=== PATIENT | male | born 1990 | race Caucasian/White ===

== ENCOUNTER 2023-02-11 08:15 | Outpatient (CLI) | payer OTHER, SELFPAY ==
[2023-02-11 18:31] LABS: Hematocrit 42.3 % (42.0-52.0); Hemoglobin 13.6 g/dL (14.0-18.0); Mean Corpuscular HGB Conc 32.2 g/dl (32-36); Mean Corpuscular Hemoglobin 31.5 pg (26-34); Mean Corpuscular Volume 97.9 fl (80-100); Mean Platelet Volume 12.1 fl (7.4-10.4); Platelet Count Result 253 k/mm3 (150-375); Red Blood Count 4.32 M/mm3 (4.6-6.20); Red Cell Distribution Width 12.6 % (11.5-14.5)
[2023-02-11 18:42] LABS: Alanine Aminotransferase 85 U/L (6-50); Alkaline Phosphatase 95 U/L (38-126); Anion Gap 9 mmol/L (8-16); Aspartate Amino Transferase 143 U/L (17-59); Bilirubin,Total 0.4 mg/dL (0.2-1.3); Blood Urea Nitrogen 14 mg/dL (9-20); Calcium 8.7 mg/dL (8.4-10.2); Carbon Dioxide 26 mmol/L (22-30); Chloride 105 mmol/L (98-107); Cholesterol 161 mg/dL (0-200); Estimated Glomerular Filt Rate > 60; Glucose 91 mg/dL (65-110); HDL Direct 25 mg/dL; Potassium 3.7 mmol/L (3.4-5.0); Sodium 140 mmol/L (137-145); Triglycerides 219 mg/dL (<150)
[2023-02-11 18:54] LABS: LDL Cholesterol Direct 93 mg/dL
== END 2023-02-11 08:16 | disposition home or self-care (01) ==
PROVIDERS: PCP Family Medicine; Visit Provider Family Medicine
DX: Z00.00 Encounter for general adult medical examination without abnormal findings (principal); E66.9 Obesity, unspecified
CPT/HCPCS: 36415; 80053; 80061; 83036; 84443; 85027

== ENCOUNTER 2023-04-11 11:13 | Outpatient (CLI) | payer OTHER, SELFPAY ==
[2023-04-11 18:55] LABS: Hematocrit 44.8 % (42.0-52.0); Hemoglobin 14.6 g/dL (14.0-18.0); Mean Corpuscular HGB Conc 32.6 g/dl (32-36); Mean Corpuscular Volume 95.1 fl (80-100); Mean Platelet Volume 12.2 fl (7.4-10.4); Platelet Count Result 300 k/mm3 (150-375); Red Blood Count 4.71 M/mm3 (4.6-6.20); Red Cell Distribution Width 12.2 % (11.5-14.5); White Blood Count 8.3 K/mm3 (4.5-10.0)
[2023-04-11 20:26] LABS: Alanine Aminotransferase 78 U/L (6-50); Albumin Level 4.2 g/dL (3.5-5.1); Alkaline Phosphatase 91 U/L (38-126); Anion Gap 9 mmol/L (8-16); Aspartate Amino Transferase 124 U/L (17-59); Bilirubin,Total 0.5 mg/dL (0.2-1.3); Blood Urea Nitrogen 14 mg/dL (9-20); Calcium 8.9 mg/dL (8.4-10.2); Carbon Dioxide 25 mmol/L (22-30); Chloride 106 mmol/L (98-107); Estimated Glomerular Filt Rate > 60; Glucose 87 mg/dL (65-110); Potassium 4.1 mmol/L (3.4-5.0); Sodium 140 mmol/L (137-145)
== END 2023-04-11 11:14 | disposition home or self-care (01) ==
LOC: ANHBWCLAB 11:14
PROVIDERS: PCP Nurse Practitioner Adult Health; Visit Provider Nurse Practitioner Adult Health
DX: R03.0 Elevated blood-pressure reading, without diagnosis of hypertension (principal); D64.9 Anemia, unspecified; R74.8 Abnormal levels of other serum enzymes
CPT/HCPCS: 36415; 80048; 80076; 85027

== ENCOUNTER 2024-01-16 11:27 | Outpatient (CLI) | payer OTHER, SELFPAY ==
[2024-01-16 19:06] LABS: Alanine Aminotransferase 49 U/L (6-50); Albumin Level 4.3 g/dL (3.5-5.1); Alkaline Phosphatase 95 U/L (38-126); Anion Gap 8 mmol/L (4-12); Aspartate Amino Transferase 63 U/L (17-59); Bilirubin,Total 0.4 mg/dL (0.2-1.3); Blood Urea Nitrogen 16 mg/dL (9-20); Calcium 9.2 mg/dL (8.4-10.2); Carbon Dioxide 26 mmol/L (22-30); Chloride 103 mmol/L (98-107); Cholesterol 154 mg/dL (0-200); Estimated Glomerular Filt Rate > 60; Glucose 98 mg/dL (65-110); HDL Direct 34 mg/dL; Potassium 4.4 mmol/L (3.4-5.0); Sodium 137 mmol/L (137-145); Triglycerides 138 mg/dL (<150)
[2024-01-16 19:13] LABS: Hematocrit 44.7 % (42.0-52.0); Hemoglobin 14.7 g/dL (14.0-18.0); Mean Corpuscular HGB Conc 32.9 g/dl (32-36); Mean Corpuscular Hemoglobin 31.7 pg (26-34); Mean Corpuscular Volume 96.3 fl (80-100); Mean Platelet Volume 12.6 fl (7.4-10.4); Platelet Count Result 277 k/mm3 (150-375); Red Blood Count 4.64 M/mm3 (4.6-6.20); Red Cell Distribution Width 12.1 % (11.5-14.5); White Blood Count 8.4 K/mm3 (4.5-10.0)
[2024-01-16 19:17] LABS: LDL Cholesterol Direct 83 mg/dL
== END 2024-01-16 11:28 | disposition home or self-care (01) ==
LOC: ANHBWCLAB 11:28
PROVIDERS: PCP Nurse Practitioner Adult Health; Visit Provider Nurse Practitioner Adult Health
DX: R74.8 Abnormal levels of other serum enzymes (principal); E78.1 Pure hyperglyceridemia; Z13.9 Encounter for screening, unspecified
CPT/HCPCS: 36415; 80053; 80061; 85027

== ENCOUNTER 2024-07-16 11:23 | Outpatient (CLI) | payer OTHER, SELFPAY ==
[2024-07-16 20:22] LABS: Alanine Aminotransferase 42 U/L (6-50); Albumin Level 4.1 g/dL (3.5-5.1); Alkaline Phosphatase 98 U/L (38-126); Anion Gap 9 mmol/L (4-12); Aspartate Amino Transferase 59 U/L (17-59); Bilirubin,Total 0.6 mg/dL (0.2-1.3); Blood Urea Nitrogen 15 mg/dL (9-20); Calcium 8.5 mg/dL (8.4-10.2); Carbon Dioxide 22 mmol/L (22-30); Chloride 106 mmol/L (98-107); Cholesterol 149 mg/dL (0-200); Estimated Glomerular Filt Rate > 60; Glucose 82 mg/dL (65-110); HDL Direct 32 mg/dL; Potassium 3.5 mmol/L (3.4-5.0); Sodium 137 mmol/L (137-145); Triglycerides 127 mg/dL (<150)
[2024-07-16 20:34] LABS: LDL Cholesterol Direct 86 mg/dL
[2024-07-16 21:23] LABS: Hemoglobin A1C 5.2 % (<5.7)
== END 2024-07-16 11:24 | disposition home or self-care (01) ==
LOC: ANHBWCLAB 11:25
PROVIDERS: PCP Nurse Practitioner Adult Health; Visit Provider Nurse Practitioner Adult Health
DX: E66.9 Obesity, unspecified (principal); Z13.9 Encounter for screening, unspecified
CPT/HCPCS: 36415; 80053; 80061; 83036

== ENCOUNTER 2024-10-08 15:22 | Emergency (ER) | payer OTHER, SELFPAY ==
[2024-10-08 15:26] VITALS: BP 163/95; PULSE 68; RESP 20; TEMP 36.7; O2SAT 98
--- NOTE | 2024-10-08 15:31 | ED.BACK ---
HPI - Back Pain/Injury General Chief Complaint: Back Pain/Injury Stated Complaint: Back Pain Time Seen by Provider: 10/08/24 15:32 Source: patient, RN notes reviewed and old records reviewed Mode of arrival: ambulatory Limitations: no limitations History of Present Illness HPI Narrative: 34-year-old male presents to the [facility] with complaints of low back pain worse on the right than the left for the last 5-6 days. Denies any injury. 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 Has taken ibuprofen with no relief. Denies any midline tenderness. No loss retention bowel or bladder. Walks with normal gait. No numbness or tingling in extremities Denies anything makes it better or worse. Changes positions without issue. Related Data Allergies Allergy/AdvReac Type Severity Reaction Status Date / Time No Known Allergies Allergy Unverified 09/17/24 10:56 Review of Systems Review of Systems: All systems reviewed & are unremarkable except as noted in HPI and below Constitutional: Constitutional: Reports no additional constitutional complaints Respiratory: Respiratory: Denies cough Gastrointestinal: Gastrointestinal: Reports no additional gastrointestinal complaints Genitourinary: Genitourinary: Reports no additional male genitourinary complaints Musculoskeletal: Musculoskeletal: Reports as per HPI and Reports back pain ( lumbar) Integumentary/Breasts: Skin/Breast: Reports system reviewed and no additional complaints, except as docu PMFSH Past Medical History Medical History Obesity Hypertriglyceridemia Hypertension Family History Family History Father Asthma Diabetes mellitus Hypertension Depression Cancer Grandparent Cancer Social History Social History Smoking status: Current every day smoker Tobacco type: e-cigarettes/vaping Alcohol intake: never Substance use: current Lack of Transportation: No Lack of Food: Never True Current Housing: I Have Housing Concerned About Future Housing: No Difficulty Paying Gas/Electric Bills: No Difficulty Paying for Meds: No Currently Unemployed: No Education: Trade/Vocational Certificate Difficulty w/ Childcare or Family Care: No Living arrangements: with family Occupation/Education: occupation 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 There is no relevant family history pertinent to the patient complaint. Exam Const: General: cooperative, healthy appearing, comfortable, no acute distress, well developed, alert and well nourished Nutritional Appearance: well nourished and obese morbidly obese Orientation/consciousness: patient oriented x3 Limitations: no limitations HENMT: Head: normal to inspection Eyes: General: appearance normal, both eyes and all related structures Alignment and Position: alignment normal Neck: Neck: normal visual inspection, full ROM, no lymphadenopathy and no meningeal signs Chest: Chest palpation & inspection: normal inspection of the chest Resp: Effort & Inspection: normal respiratory effort and able to speak in complete sentences Auscultation: clear to auscultation bilaterally, no crackles, no rales, no rhonchi and no wheezes Cardio: Rate: regular rate GI: GI Palp: No abdominal tenderness Back/Spine/Pelvis: Cervical Spine: normal cervical lordosis, cervical ROM normal and No Cervical spine tenderness Thoracic/Lumbar Spine: paraspinal muscle tenderness on the right in the mid lumbar and in the lower lumbar, No thoracic spinal tenderness and No lumbar spinal tenderness Pelvis: no pain with anterior-posterior compression and no pain with lateral compression Skin: General skin exam: normal color and no rashes or lesions noted Neuro: General: patient oriented x3, gait normal, moves all extremities and no meningeal signs Cognition (Neuro): normal cognition Speech: normal speech Gait exam (Neuro): Normal gait present Extrem: General: normal to inspection, full ROM, capillary refill normal and normal gait Psych: Appearance: grossly normal and well kempt Mental Status: mental status grossly normal Speech and movement: Normal speech and movement present and Clear speech present Affect: normal affect Attitude: cooperative Course Course Level of Care: Express Care Visit Vital Signs Vital signs: Vital Signs Temperature 98.0 F 10/08/24 15:26 Pulse Rate 68 10/08/24 15: Respiratory Rate 20 10/08/24 15:26 Blood Pressure 163/95 H 10/08/24 15:26 Pulse Oximetry 98 10/08/24 15:26 Oxygen Delivery Room Air 10/08/24 15:26 Temperature 98.0 F 10/08/24 15:26 Pulse Rate 68 10/08/24 15:26 Respiratory Rate 20 10/08/24 15:26 Blood Pressure 163/95 H 10/08/24 15:26 Pulse Oximetry 98 10/08/24 15:26 Oxygen Delivery Room Air 10/08/24 15:26 Reviewed MDM - Back Pain/Injury MDM Narrative Medical decision making narrative: patient sitting in exam room. Nontoxic, vitals are stable. Patient presents 5-6 day history of low back pain worse on the right than left. No injury. No acute findings noted on exam patient appropriate for outpatient treatment with muscle relaxer, anti-inflammatory. Discharge instructions reviewed with patient, as well as provided in writing per nursing staff. The instructions also include specific and strict return/GO TO THE ER as well as f/u information. All questions have been answered, and the patient deny any further questions with discharge and discharge plan. Some parts of this dictation were generated by voice recognition software and may contain typographical and/or grammatical inaccuracies. Differential Diagnosis Differential diagnosis: Likely lumbar radiculopathy, sciatica, strain of lumbar region, renal colic and pyelonephritis Critical Care Time Critical Care Time Critical Care Time: No Discharge Plan Discharge Clinical Impression: Low back pain Qualifiers: Chronicity: acute Back pain laterality: bilateral Sciatica presence: without sciatica Qualified Code(s): M54.50 - Low back pain, unspecified Patient Disposition: Home Condition: Stable Instructions: Low Back Strain (ED), Acute Low Back Pain (ED), Lower Back Exercises (ED) Additional Instructions: Today your blood pressure was 163/95. Please follow-up with your primary care provider within 2 weeks to have this rechecked. Take ibuprofen as directed to decrease inflammation and to help pain. Take Baclofen (muscle relaxer) as directed. Do not drink, drive, operate machinery, or do anything dangerous while taking this medication Exercise:Combine aerobic exercise, like walking or swimming, with specific exercises to keep the muscles in your back and abdomen strong and flexible. Proper Lifting:Be sure to lift heavy items with your legs, not your back. Do not bend over to pick something up. Keep your back straight and bend at your knees. Weight:Maintain a healthy weight. Being overweight puts added stress on your lower back. Avoid Smoking:Both the smoke and the nicotine cause your spine to age faster than normal. Proper Posture:Good posture is important for avoiding future problems. A therapist can teach you how to safely stand, sit, and lift. Use warm moist heat to help with pain. Using topical such as Biofreeze, Rajesh-Bryan or Aspercreme can also help Follow up with Primary provider in 2-3 days, This may become a chronic condition and they will be the one to help manage your pain and order additional testing. Go to the nearest ER if you develop problems with bladder/bowel function, weakness or loss of feeling in one or both of your legs. Patient Language: Omani Prescriptions: New baclofen 10 mg tablet 10 mg PO TID PRN (Reason: muscle pain, back pain) Qty: 12 0RF No Action losartan 100 mg tablet 100 mg PO DAILY Qty: 90 0RF Follow-up/Referrals: Ginna Zapata APRN [Primary Care Provider] - Stand Alone Forms: Work/School Release IP Time of Disposition: 15:41
== END 2024-10-08 15:49 | disposition home or self-care (01) ==
PROVIDERS: Emergency Provider Nurse Practitioner; PCP Nurse Practitioner Adult Health
DX: M54.50 Low back pain, unspecified (principal); F17.290 Nicotine dependence, other tobacco product, uncomplicated; I10 Essential (primary) hypertension; E78.1 Pure hyperglyceridemia; E66.9 Obesity, unspecified; Z68.43 Body mass index [BMI] 50.0-59.9, adult
CPT/HCPCS: 99213; G0463

== ENCOUNTER 2024-10-22 10:42 | Outpatient (CLI) | payer OTHER, SELFPAY ==
--- NOTE | ~2024-10-22 | XR_ITS ---
EXAM/ PROCEDURE: XR lumbar spine 2-3V - 10/22/2024 10:44 CDT HISTORY: 34 years old Male with M54.9 - Dorsalgia, unspecified COMPARISON: None available TECHNIQUE: Four view(s) FINDINGS/ IMPRESSION: There are no fractures or dislocations.Intervertebral disc spaces are within normal limits. Reviewed, dictated and finalized at location A.
== END 2024-10-22 10:43 | disposition home or self-care (01) ==
LOC: ANHBWCIMG 10:43
PROVIDERS: PCP Nurse Practitioner Adult Health; Visit Provider Nurse Practitioner Adult Health
DX: M54.9 Dorsalgia, unspecified (principal)
CPT/HCPCS: 72100

== ENCOUNTER 2024-11-07 10:53 | Emergency (ER) | payer OTHER, SELFPAY ==
[2024-11-07 10:59] VITALS: BP 153/104; PULSE 70; RESP 18; TEMP 36.6; O2SAT 100
--- NOTE | 2024-11-07 11:16 | ED.LOWEXIN ---
HPI - Extremity Injury (Lower) General Chief Complaint: Extremity Injury, Lower Stated Complaint: Left Leg Pain Time Seen by Provider: 11/07/24 11:08 Source: patient, RN notes reviewed and old records reviewed Mode of arrival: ambulatory Limitations: no limitations History of Present Illness HPI Narrative: Patient presents today with a 5 day history of left leg pain that starts at the low back extending to the buttock, posterior thigh and into the calf. Patient had low back pain 3 weeks ago but states it almost fully resolved. He initially saw his PCP for this back pain, had an x-ray, and was told it was negative. Denies injury, fall, trauma. Denies numbness or tingling. Denies loss of bowel or bladder control. Rates pain 6/10 and has been taking Tylenol and ibuprofen without improvement. Pain significantly increases when he sits. Related Data Allergies Allergy/AdvReac Type Severity Reaction Status Date / Time No Known Allergies Allergy Unverified 09/17/24 10:56 PMFSH Past Medical History Medical History Obesity Hypertriglyceridemia Hypertension Family History Family History Father Asthma Diabetes mellitus Hypertension Depression Cancer Grandparent Cancer Social History Social History Smoking status: Current every day smoker Tobacco type: e-cigarettes/vaping Alcohol intake: never Substance use: current Lack of Transportation: No Lack of Food: Never True Current Housing: I Have Housing Concerned About Future Housing: No Difficulty Paying Gas/Electric Bills: No Difficulty Paying for Meds: No Currently Unemployed: No Education: Trade/Vocational Certificate Difficulty w/ Childcare or Family Care: No Living arrangements: with family Occupation/Education: occupation 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 Please see nursing chart for further information. There is no relevant family history pertinent to the presenting complaint Exam Narrative: GENERAL: Well-appearing, over-nourished, and in mild pain distress. HEAD: Normocephalic, atraumatic. EYES: EOMI. No redness or drainage. Conjunctivae normal. ENT: Mucous membranes pink and moist. NECK: Normal AROM. MUSCULOSKELETAL: No bony tenderness of the lumbar spine. No tenderness to the SI joint, there is mild tenderness to the posterior thigh extending to the posterior calf. Pain in the left low lumbar and left buttock when sitting on exam table. Distal sensation intact bilaterally. Saddle sensation intact. Capillary refill normal. 5/5 strength in BLE EXTREMITIES: Normal range of motion. No edema. SKIN: Warm, dry, no rash. Capillary refill normal. Normal skin turgor. NEURO: No focal deficits. Alert and oriented x3. Gait steady. PSYCH: Normal affect. No signs of depression or anxiety. Course Course Level of Care: Express Care Visit Vital Signs Vital signs: Vital Signs Temperature 97.8 F 11/07/24 10:59 Pulse Rate 70 11/07/24 10:59 Respiratory Rate 18 11/07/24 10:59 Blood Pressure 153/104 H 11/07/24 10:59 Pulse Oximetry 100 11/07/24 10:59 Oxygen Delivery Room Air 11/07/24 10:59 Temperature 97.8 F 11/07/24 10:59 Pulse Rate 70 11/07/24 10:59 Respiratory Rate 18 11/07/24 10:59 Blood Pressure 153/104 H 11/07/24 10:59 Pulse Oximetry 100 11/07/24 10:59 Oxygen Delivery Room Air 11/07/24 10:59 Reviewed MDM - Extremity Injury (Lower) MDM Narrative Medical decision making narrative: 34-year-old male patient presents today with pain to the left low back extending to the left calf x5 days, that increases with sitting. Tylenol and ibuprofen have not been improving symptoms. Currently rates his pain 6/10. Denies numbness or tingling. No injury or trauma. Upon exam, back and buttock are nontender, patient has some mild tenderness to the posterior thigh and calf area. Neurovascularly intact. No saddle anesthesia. Does likely due to left-sided sciatica. Will treat with Flexeril and prednisone. Recommend no heavy lifting, twisting, jumping until symptoms improve. Also recommend following up with PCP next week if symptoms are not improving. Patient agrees with plan. Blood pressure a bit elevated today, hydrochlorothiazide added to patient's losartan at the end of October by PCP. Remainder of vital signs stable. Anticipatory guidance given. Differential Diagnosis Differential diagnosis: Likely other (Low back strain, sciatica, lumbar radiculopathy) Critical Care Time Critical Care Time Critical Care Time: No Discharge Plan Discharge Clinical Impression: Low back pain with left-sided sciatica Patient Disposition: Home Condition: Stable Instructions: Sciatica (ED), Lower Back Exercises (ED) Additional Instructions: Please take all medications as prescribed. Do not drive within 8 hours of taking the Flexeril as it can make you drowsy. You may continue Tylenol or ibuprofen if needed for pain. Use a heating pad on your back and left buttock. No heavy lifting, jumping, twisting, lunging until your pain is improved. Follow-up with your PCP next week if symptoms are not improving. Go to the ER immediately if symptoms worsen to include numbness or tingling in the legs or genitalia, loss of bowel or bladder control, significant worsening of your back pain. Your blood pressure was elevated above 120/80 today at Urgent Care. This puts you above the threshold for follow up. Please schedule a followup visit with your personal physician as soon as possible, for further evaluation and treatment. Even blood pressure exceeding 120/80 may indicate pre-hypertension. Patient Language: Finnish Prescriptions: New cyclobenzaprine 10 mg tablet 10 mg PO TID PRN (Reason: muscle spasm) Qty: 20 0RF prednisone 50 mg tablet 50 mg PO DAILY 5 Days Qty: 5 0RF No Action hydrochlorothiazide 25 mg tablet 25 mg PO DAILY Qty: 90 3RF losartan 100 mg tablet 100 mg PO DAILY Qty: 90 3RF Follow-up/Referrals: Ginna Zapata APRN [Primary Care Provider] - Time of Disposition: 11:20
== END 2024-11-07 11:25 | disposition home or self-care (01) ==
PROVIDERS: Emergency Provider Nurse Practitioner; PCP Nurse Practitioner Adult Health
DX: M54.42 Lumbago with sciatica, left side (principal); I10 Essential (primary) hypertension; E78.1 Pure hyperglyceridemia; E66.9 Obesity, unspecified; Z68.43 Body mass index [BMI] 50.0-59.9, adult; F17.290 Nicotine dependence, other tobacco product, uncomplicated
CPT/HCPCS: 99213; G0463

== ENCOUNTER 2024-11-22 15:45 | Outpatient (CLI) | payer OTHER, SELFPAY ==
--- NOTE | ~2024-11-22 | XR_ITS ---
XR knee LT 3V 11/22/2024 16:14 INDICATION: Left knee pain PROCEDURE: 3 views left knee COMPARISON: No prior studies for comparison. FINDINGS: Fracture, dislocation or subluxation is not identified. No significant joint effusion. The soft tissues appear within normal limits. No foreign bodies are identified. IMPRESSION: 1: NO ACUTE BONE OR JOINT ABNORMALITY IDENTIFIED. Reviewed, dictated and finalized at location O.
--- NOTE | ~2024-11-22 | US_ITS ---
EXAMINATION: US venous doppler [facility] DATE: 11/22/2024 16:45 INDICATION: Left lower limb pain and erythema TECHNIQUE: Grayscale ultrasound images without and with compression and Doppler ultrasound images of the left lower extremity veins were obtained. COMPARISON: None. FINDINGS: Noncompressible nonocclusive deep venous anastomosis in both the posterior tibial veins at the left calf. The visualized portions of left common femoral vein, profunda (deep) femoral vein, femoral vein, popliteal vein, peroneal veins, gastrocnemius vein and greater saphenous vein outflow are patent. IMPRESSION: 1. Nonocclusive [id number] deep venous thrombosis in the paired posterior tibial veins of the left calf. Reviewed, dictated and finalized at location A. IMPRESSION: 1. Nonocclusive [id number] deep venous thrombosis in the paired posterior tibial veins of the left calf.
== END 2024-11-22 15:46 | disposition home or self-care (01) ==
PROVIDERS: PCP Nurse Practitioner Adult Health; Visit Provider Nurse Practitioner Adult Health
DX: I82.442 Acute embolism and thrombosis of left tibial vein (principal)
CPT/HCPCS: 73562; 93971

== ENCOUNTER 2024-11-26 11:48 | Outpatient (CLI) | payer OTHER, SELFPAY ==
[2024-11-26 19:52] LABS: Alanine Aminotransferase 64 U/L (6-50); Albumin Level 4.5 g/dL (3.5-5.1); Alkaline Phosphatase 86 U/L (38-126); Anion Gap 9 mmol/L (4-12); Aspartate Amino Transferase 77 U/L (17-59); Bilirubin,Total 0.5 mg/dL (0.2-1.3); Blood Urea Nitrogen 15 mg/dL (9-20); Calcium 9.6 mg/dL (8.4-10.2); Carbon Dioxide 26 mmol/L (22-30); Chloride 102 mmol/L (98-107); Cholesterol 204 mg/dL (0-200); Estimated Glomerular Filt Rate > 60; Glucose 95 mg/dL (65-110); HDL Direct 32 mg/dL; Potassium 4.0 mmol/L (3.4-5.0); Sodium 137 mmol/L (137-145); Total Protein 8.3 g/dL (6.3-8.2); Triglycerides 162 mg/dL (<150)
== END 2024-11-26 11:49 | disposition home or self-care (01) ==
LOC: ANHBWCLAB 11:49
PROVIDERS: PCP Nurse Practitioner Adult Health; Visit Provider Nurse Practitioner Adult Health
DX: E78.1 Pure hyperglyceridemia (principal)
CPT/HCPCS: 36415; 80053; 80061

== ENCOUNTER 2024-12-15 17:19 | Emergency (ER) | payer OTHER, SELFPAY ==
--- NOTE | ~2024-12-15 | CT_ITS ---
EXAMINATION: CT lumbar spine wo con COMPARISON: None HISTORY: Lumbar radiculopathy TECHNIQUE: Axial images were obtained through the spine without IV contrast. Coronal, sagittal reconstruction images were obtained from the axial views. CT scan performed using dose optimization techniques including the following automated exposure control; adjustment of mA and/or kV; use of iterative reconstruction technique. Automatic exposure control was used to reduce radiation dose. Permanent radiation dose record is archived to PACS. FINDINGS: The vertebral heights are intact. No fracture or subluxation. The disc heights are intact. Soft tissues unremarkable. Impression: No acute abnormality. Reviewed, dictated and finalized at location A. Impression: No acute abnormality.
[2024-12-15 17:24] VITALS: BP 141/70; PULSE 103; RESP 18; TEMP 36.9; O2SAT 98
--- NOTE | 2024-12-15 20:16 | ED_ITS ---
HPI - General Adult General Chief complaint: Recheck/Abnormal Lab/Rx <Paul Ballard MD - Last Filed: 12/15/24 20:53> Stated complaint: leg pain <Paul Ballard MD - Last Filed: 12/15/24 20:53> Time Seen by Provider: 12/15/24 19:56 <Paul Ballard MD - Last Filed: 12/15/24 20:53> Source: patient <Paul Ballard MD - Last Filed: 12/15/24 20:53> Mode of arrival: ambulatory <Paul Ballard MD - Last Filed: 12/15/24 20:53> Limitations: no limitations <Paul Ballard MD - Last Filed: 12/15/24 20:53> History of Present Illness HPI narrative: 34 years old white male came to the ED complaining of numbness at the lateral side of left thigh started 1-2 weeks ago. Intermittent, worse over the last 24 hours. Denies aggravating or relieving factors History of chronic pain at the left lower leg and was told that he have possible sciatica. Patient had recent diagnosis of deep vein thrombosis below the knee November 21 and currently on anticoagulant medication. Patient denies any fever, chills, nausea, vomiting or recent trauma. <Paul Ballard MD - Last Filed: 12/15/24 20:53> Related Data Allergies/adverse reactions: Allergies Allergy/AdvReac Type Severity Reaction Status Date / Time No Known Allergies Allergy Verified 12/15/24 17:26 <Paul Ballard MD - Last Filed: 12/15/24 20:53> Review of Systems Review of Systems: All systems reviewed & are unremarkable except as noted in HPI and below <Paul Ballard MD - Last Filed: 12/15/24 20:53> PMFSH Past Medical History Medical History: Medical History Obesity Hypertriglyceridemia Hypertension <Paul Ballard MD - Last Filed: 12/15/24 20:53> Family History Family History: Family History Father Asthma Diabetes mellitus Hypertension Depression Cancer Grandparent Cancer <Paul Ballard MD - Last Filed: 12/15/24 20:53> Social History Social History: Social History Smoking status: Former smoker Tobacco type: e-cigarettes/vaping Alcohol intake: never Substance use: current Lack of Transportation: No Lack of Food: Never True Current Housing: I Have Housing Concerned About Future Housing: No Difficulty Paying Gas/Electric Bills: No Difficulty Paying for Meds: No Currently Unemployed: No Education: Trade/Vocational Certificate Difficulty w/ Childcare or Family Care: No Living arrangements: with family Occupation/Education: occupation 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, no gross motor deficit, negative straight leg raising test <Paul Ballard MD - Last Filed: 12/15/24 20:53> Course Vital Signs Vital signs: Vital Signs Temperature 98.5 F 12/15/24 17:24 Pulse Rate 103 H 12/15/24 17:24 Respiratory Rate 18 12/15/24 17:24 Blood Pressure 141/70 H 12/15/24 17:24 Pulse Oximetry 98 12/15/24 17:24 Oxygen Delivery Room Air 12/15/24 17:24 Temperature 98.5 F 12/15/24 17:24 Pulse Rate 103 H 12/15/24 17:24 Respiratory Rate 18 12/15/24 17:24 Blood Pressure 141/70 H 12/15/24 17:24 Pulse Oximetry 98 12/15/24 17:24 Oxygen Delivery Room Air 12/15/24 17:24 <Paul Ballard MD - Last Filed: 12/15/24 20:53> Vital Signs Temperature 98.5 F 12/15/24 17:24 Pulse Rate 103 H 12/15/24 17:24 Respiratory Rate 18 12/15/24 17:24 Blood Pressure 141/70 H 12/15/24 17:24 Pulse Oximetry 98 12/15/24 17:24 Oxygen Delivery Room Air 12/15/24 17:24 Temperature 98.5 F 12/15/24 17:24 Pulse Rate 103 H 12/15/24 17:24 Respiratory Rate 18 12/15/24 17:24 Blood Pressure 141/70 H 12/15/24 17:24 Pulse Oximetry 98 12/15/24 17:24 Oxygen Delivery Room Air 12/15/24 17:24 <Irene Bevelry MD - Last Filed: 12/15/24 23:19> Medical Decision Making MDM Narrative Medical decision making narrative: Numbness lateral side left thigh Vital signs are stable Physical examination is remarkable for morbid obesity Differential diagnosis: Meralgia paresthetica, prolonged positioning laying in position that place pressure on the groin can contribute to the condition, peripheral neuropathy, spinal issues, tumor or masses <Paul Ballard MD - Last Filed: 12/15/24 20:53> Numbness lateral side left thigh Vital signs are stable Physical examination is remarkable for morbid obesity Differential diagnosis: Meralgia paresthetica, prolonged positioning laying in position that place pressure on the groin can contribute to the condition, peripheral neuropathy, spinal issues, tumor or masses. Elbashir: Patient signed out to me pending CT lumbar spine. CT was obtained and blood interpreted by me revealing no acute process, no fracture or malalignment. Mild degenerative changes noted at L4-L5 and L5-S1. Patient informed of these findings at bedside. Provided with an orthopedic doctor to follow up with. Pain management at. Instructed to follow up within the next 3-5 days. Provided with strict return precautions instructed to return to the ED if any new or worsening symptoms develop. Discharged home in stable condition. <Irene Beverly MD - Last Filed: 12/15/24 23:19> Vital Signs Vital Signs: Vital Signs Temperature 98.5 F 12/15/24 17:24 Pulse Rate 103 H 12/15/24 17:24 Respiratory Rate 18 12/15/24 17:24 Blood Pressure 141/70 H 12/15/24 17:24 Pulse Oximetry 98 12/15/24 17:24 Oxygen Delivery Room Air 12/15/24 17:24 Temperature 98.5 F 12/15/24 17:24 Pulse Rate 103 H 12/15/24 17:24 Respiratory Rate 18 12/15/24 17:24 Blood Pressure 141/70 H 12/15/24 17:24 Pulse Oximetry 98 12/15/24 17:24 Oxygen Delivery Room Air 12/15/24 17:24 <Paul Ballard MD - Last Filed: 12/15/24 20:53> Vital Signs Temperature 98.5 F 12/15/24 17:24 Pulse Rate 103 H 12/15/24 17:24 Respiratory Rate 18 12/15/24 17:24 Blood Pressure 141/70 H 12/15/24 17:24 Pulse Oximetry 98 12/15/24 17:24 Oxygen Delivery Room Air 12/15/24 17:24 Temperature 98.5 F 12/15/24 17:24 Pulse Rate 103 H 12/15/24 17:24 Respiratory Rate 18 12/15/24 17:24 Blood Pressure 141/70 H 12/15/24 17:24 Pulse Oximetry 98 12/15/24 17:24 Oxygen Delivery Room Air 12/15/24 17:24 <Irene Beverly MD - Last Filed: 12/15/24 23:19> Discharge Plan Discharge Clinical Impression: Meralgia paresthetica of left side <Paul Ballard MD - Last Filed: 12/15/24 20:53> Patient Disposition: Home <Paul Ballard MD - Last Filed: 12/15/24 20:53> Condition: Stable <Paul Ballard MD - Last Filed: 12/15/24 20:53> Instructions: Meralgia Paresthetica (ED) <Paul Ballard MD - Last Filed: 12/15/24 20:53> Additional Instructions: Return if symptoms are worsening , call your family physician for appointment, take Tylenol as as needed for aches and pain, continue home medications. <Paul Ballard MD - Last Filed: 12/15/24 20:53> Patient Language: Samoan <Paul Ballard MD - Last Filed: 12/15/24 20:53> Prescriptions: New diclofenac sodium 75 mg tablet,delayed release (DR/EC) 75 mg PO BID PRN (Reason: pain) Qty: 14 0RF pantoprazole [Protonix] 20 mg tablet,delayed release (DR/EC) 20 mg PO HS 28 Days Qty: 28 0RF lidocaine 5 % adhesive patch,medicated 1 patch topical DAILY Qty: 10 0RF Rx Instructions: leave on most painful area for up to 12 hrs No Action hydrochlorothiazide 25 mg tablet 25 mg PO DAILY Qty: 90 3RF losartan 100 mg tablet 100 mg PO DAILY Qty: 90 3RF amlodipine 5 mg tablet 5 mg PO DAILY Qty: 90 0RF Xarelto 20 mg tablet 20 mg PO DAILY Qty: 90 0RF Rx Instructions: must administer with evening meal Start after finishing 21 days of 15mg twice a day. <Paul Ballard MD - Last Filed: 12/15/24 20:53> Follow-up/Referrals: Cleve Chirinos MD [Physician, Orthopedics] - 3 Days Ginna Zapata APRN [Primary Care Provider, Family Practice] - 3 Days <Paul Ballard MD - Last Filed: 12/15/24 20:53> Time of Disposition: 23:17 <Paul Ballard MD - Last Filed: 12/15/24 20:53> 23:17 <Irene Beverly MD - Last Filed: 12/15/24 23:19>
[2024-12-15] MEDS: ONDANSETRON HCL ODT 4 MG TABLET PO (20:33)
[2024-12-15] MEDS: HYDROmorphone HCL INJ (*CRX) 1 MG/ML SYR IM (20:33)
[2024-12-15 23:33] VITALS: BP 143/73; PULSE 88; RESP 18; O2SAT 99
== END 2024-12-15 23:35 | disposition home or self-care (01) ==
PROVIDERS: Emergency Provider Emergency Medicine; PCP Nurse Practitioner Adult Health
DX: G57.12 Meralgia paresthetica, left lower limb (principal); F17.290 Nicotine dependence, other tobacco product, uncomplicated; I10 Essential (primary) hypertension; E78.5 Hyperlipidemia, unspecified
CPT/HCPCS: 72131; 96372; 99284; A9270; J1171

== ENCOUNTER 2025-01-14 13:36 | Emergency (ER) | payer OTHER, SELFPAY ==
[2025-01-14 13:43] VITALS: BP 173/119; PULSE 96; RESP 18; TEMP 36.6; O2SAT 99
--- NOTE | 2025-01-14 14:08 | ED.BACK ---
HPI - Back Pain/Injury General Chief Complaint: Back Pain/Injury Stated Complaint: lower back pain Time Seen by Provider: 01/14/25 14:00 Source: patient, RN notes reviewed and old records reviewed Mode of arrival: ambulatory Limitations: no limitations History of Present Illness HPI Narrative: 34 year old male presents to [facility] care with ongoing pain to left lower back into buttocks which radiates down the posterior left leg to his knee. Patient reports that this pain has been ongoing since November with no known injury. Patient reports that he does have some intermittent numbness in his left leg. Patient was discovered to have DVT in left leg in November and was started on Zaralto and reports that he has not missed any doses of this medication.Patient reports that he saw ortho in December and has appointment next week on Tuesday with ortho. Patient reports that he is awaiting MRI of his back and has been waiting for [facility] to call and schedule. Patient reports that he has tried muscle relaxers and has been given some pain medication but nothing has helped. He reports that he is suppose to see pain management on Tuesday.Patient reports that he is here today for work note he can't perform his duties at work due to pain and numbness in left leg. MD elicited complaint: back pain Onset (ago): month(s) (since November) Pain scale (0-10): 6 Quality: sharp and other (shooting) Radiation: buttocks and left upper leg Treatments prior to arrival: cold therapy, acetaminophen, prescription analgesics and other (muscle relaxers, Lidocaine patches) Related Data Allergies Allergy/AdvReac Type Severity Reaction Status Date / Time No Known Allergies Allergy Verified 01/14/25 13:47 Review of Systems Review of Systems: CONSTITUTIONAL: Denies fever, chills, or sweats. EYES: Denies visual changes, redness, or discharge. ENT: Denies rhinorrhea, congestion, sore throat, or otalgia. CARDIOVASCULAR: Denies chest pain, palpitations, or edema. RESPIRATORY: Denies cough or dyspnea. GASTROINTESTINAL: Denies abdominal pain, nausea, vomiting, or diarrhea. GENITOURINARY: Denies dysuria or hematuria. SKIN: Denies rash or itching. MUSCULOSKELETAL: Reports pain to left lower back which radiates to buttocks and down posterior left leg with intermittent numbness to left leg, or myalgia. NEUROLOGIC: Denies headache, numbness, or weakness. PSYCHIATRIC: Denies anxiety or depression. All systems reviewed & are unremarkable except as noted in HPI and below PMFSH Past Medical History Medical History (Updated 01/15/25 @ 11:21 by Sara Copeland NP) Back pain with left-sided sciatica Left leg DVT Obesity Hypertriglyceridemia Hypertension Family History Family History Father Asthma Diabetes mellitus Hypertension Depression Cancer Grandparent Cancer Social History Social History Smoking status: Former smoker Tobacco type: e-cigarettes/vaping Alcohol intake: never Substance use: current Lack of Transportation: No Lack of Food: Never True Current Housing: I Have Housing Concerned About Future Housing: No Difficulty Paying Gas/Electric Bills: No Difficulty Paying for Meds: No Currently Unemployed: No Education: Trade/Vocational Certificate Difficulty w/ Childcare or Family Care: No Living arrangements: with family Occupation/Education: occupation 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 There is no relevant family history pertinent to the presenting complaint Exam Narrative: GENERAL: Well-appearing, well-nourished, morbidly obese and in some acute distress related to pain HEAD: Normocephalic, atraumatic. EYES: PERRLA and EOMI. ENT: Nares clear, no rhinorrhea or epistaxis. Mucous membranes moist. NECK: Supple.no lymphadenopathy CHEST: Clear to auscultation. No respiratory distress.no cough noted SAO2 99% on room air HEART: Regular rate and rhythm. No murmur heard. Normal peripheral pulses. ABDOMEN: Soft, nontender, nondistended, normal active bowel sounds. EXTREMITIES: Normal range of motion. No edema. Pain to left lower back pain into left buttocks and down posterior left leg to knee with intermittent episodes of numbness reported in left leg, denies any bowel or bladder difficulty. Patient reports that pain has been ongoing since November with no improvement is miserable. SKIN: Warm, dry, no rash. NEURO: No focal deficits. Alert and oriented x3. Course Course Emergency Course: Patient is aware of diagnosis, understands and agrees to treatment plan.? Anticipatory guidance given.? Patient agrees to follow-up as directed and is aware of reasons to seek care at the emergency department. Portions of this record may have been created with voice recognition software Level of Care: Express Care Visit Vital Signs Vital signs: Vital Signs Temperature 36.6 C 01/14/25 13:43 Pulse Rate 96 01/14/25 13:43 Respiratory Rate 18 01/14/25 13:43 Blood Pressure 173/119 H 01/14/25 13:43 Pulse Oximetry 99 01/14/25 13:43 Oxygen Delivery Room Air 01/14/25 13:43 Temperature 36.6 C 01/14/25 13:43 Pulse Rate 96 01/14/25 13:43 Respiratory Rate 18 01/14/25 13:43 Blood Pressure 173/119 H 01/14/25 13:43 Pulse Oximetry 99 01/14/25 13:43 Oxygen Delivery Room Air 01/14/25 13:43 Reviewed MDM - Back Pain/Injury MDM Narrative Medical decision making narrative: No risk factors or findings concerning for epidural abscess, diskitis, vertebral osteomyelitis, cord compression, cauda equina, vertebral fracture or bone malignancy, AAA, or pyelonephritis. Patient instructed to consider further imaging and workup through their primary care physician as an outpatient if symptoms persist. Call placed to [facility] to question if patient has been scheduled for MRI and they stated don't have order. Call placed to Dr Taran story and Jade stated that order was faxed on December 20 and received confirmation that order was received. Jade states that she will refax order today and call [facility]. Differential Diagnosis Differential diagnosis: Likely lumbar radiculopathy, sciatica and other (chronic ongoing low back pain with sciatica left leg) Medical Records Attestation: I reviewed the patient's medical records. Critical Care Time Critical Care Time Critical Care Time: No Discharge Plan Discharge Clinical Impression: Acute low back pain with left-sided sciatica Qualifiers: Back pain laterality: left Qualified Code(s): M54.42 - Lumbago with sciatica, left side Patient Disposition: Home Condition: Stable Instructions: Acute Low Back Pain (ED) Additional Instructions: Ice and heat to the area for 20-30 minutes Gentle stretching exercises Gentle massage Caution with lifting, bending, stooping, twisting Avoid pushing, pulling take muscle relaxants as directed--caution drowsiness and no driving or alcohol Tylenol arthritic strength one tab po every 8 hours routinely Follow-up with your PCP if not improving in 5-7 days Patient to see pain management on Tuesday. If your symptoms persist, change or worsen significantly before you can contact your personal physician then please, without delay, go to the emergency department for further evaluation. Follow-up with PCP in 7-10 days or sooner if needed Follow up with PCP soon in regards to your blood pressure which is elevated above threshold for referral. Blood pressure above 120/80 may indicate pre-hypertension. 173/119 has not taken his medication today Patient Language: Indian Prescriptions: New tizanidine 4 mg tablet 4 mg PO Q8H PRN (Reason: muscle spasticity) Qty: 30 0RF Rx Instructions: no driving or any alcohol while taking these medication No Action hydrochlorothiazide 25 mg tablet 25 mg PO DAILY Qty: 90 3RF losartan 100 mg tablet 100 mg PO DAILY Qty: 90 3RF amlodipine 5 mg tablet 5 mg PO DAILY Qty: 90 0RF Xarelto 20 mg tablet 20 mg PO DAILY Qty: 90 0RF Rx Instructions: must administer with evening meal Start after finishing 21 days of 15mg twice a day. Follow-up/Referrals: Ginna Zapata APRN [Primary Care Provider, Family Practice] Stand Alone Forms: Work/School Release IP Time of Disposition: 14:27 Quality Blount Coma Scale Eyes: Open Verbal: Oriented and Alert Motor: Follows Commands Jessie Coma Total Score: 15
== END 2025-01-14 14:30 | disposition home or self-care (01) ==
PROVIDERS: Emergency Provider Registered Nurse; PCP Nurse Practitioner Adult Health
DX: M54.42 Lumbago with sciatica, left side (principal); I10 Essential (primary) hypertension; E78.1 Pure hyperglyceridemia; E66.9 Obesity, unspecified; Z68.42 Body mass index [BMI] 45.0-49.9, adult; Z86.718 Personal history of other venous thrombosis and embolism; Z87.891 Personal history of nicotine dependence; Z79.01 Long term (current) use of anticoagulants
CPT/HCPCS: 99213; G0463

== ENCOUNTER 2025-02-05 08:54 | Outpatient (CLI) | payer OTHER, SELFPAY ==
--- NOTE | ~2025-02-05 | MR_ITS ---
EXAMINATION: MR lumbar spine wo con DATE: 02/05/2025 09:36 INDICATION: Low back pain. TECHNIQUE: Magnetic resonance imaging (MRI) of the lumbar spine was performed without intravenous contrast. Sequences included sagittal T2-weighted FSE, sagittal T2-weighted FS FSE, sagittal T1-weighted FSE, and axial T2-weighted FSE. COMPARISON: Lumbar spine CT 12/15/2024 FINDINGS: Alignment is normal. There is mild chronic height loss of L5 vertebral body posteriorly. There is mild chronic anterior wedging of T12 and L1 vertebral bodies. There is mildly decreased disc height at L4-L5 and L5-S1. The distal spinal cord signal intensity is normal. The conus medullaris is at L1-L2. The following disc levels are specifically discussed: L1-L2: The disc does not extend beyond the endplate margin. There is mild bilateral facet joint osteoarthritis. There is no neural foraminal stenosis. There is no central canal stenosis. L2-L3: The disc does not extend beyond the endplate margin. There is moderate bilateral facet joint osteoarthritis. There is no neural foraminal stenosis. There is no central canal stenosis. L3-L4: There is a left foraminal protrusion. There is severe bilateral facet joint osteoarthritis. There is mild bilateral neural foraminal stenosis. There is no central canal stenosis. L4-L5: The disc is bulging. There is mild bilateral facet joint osteoarthritis. There is mild bilateral neural foraminal stenosis. There is no central canal stenosis. L5-S1: There is a left subarticular zone extrusion with mass effect on left S1 nerve root in left lateral recess. There is moderate bilateral facet joint osteoarthritis. There is mild bilateral neural foraminal stenosis. There is mild central canal stenosis at the midline. There is severe stenosis of left lateral recess. IMPRESSION: 1. Extrusion at L5-S1 with mass effect on left S1 nerve root. Otherwise mild lumbar spondylosis. Reviewed, dictated and finalized at location E. SPRAYER IMPRESSION: 1. Extrusion at L5-S1 with mass effect on left S1 nerve root. Otherwise mild melanie mbar spondylosis.
== END 2025-02-05 08:55 | disposition home or self-care (01) ==
LOC: GOSHIMG 08:55
PROVIDERS: PCP Nurse Practitioner Adult Health; Visit Provider Orthopaedic Surgery
DX: M51.27 Other intervertebral disc displacement, lumbosacral region (principal); M48.8X7 Other specified spondylopathies, lumbosacral region
CPT/HCPCS: 72148

== ENCOUNTER 2025-03-25 08:25 | Day surgery (SDC) | payer OTHER, SELFPAY ==
[2025-03-14 13:36] VITALS: BMI 50.5
--- NOTE | ~2025-03-25 | XR_ITS ---
XR fluoroscopy no charge Indication: Left L5-S1, S1-2 transforaminal epidural steroid injection TECHNIQUE: Fluoroscopy used during Left L5-S1, S1-2 transforaminal epidural steroid injection performed by [Paul Streeter MD] on 03/25/2025. 41 seconds of fluoroscopy with 68 fluoroscopic images captured. FINDINGS: Correlate with procedure note. IMPRESSION: Fluoroscopy used during Left L5-S1, S1-2 transforaminal epidural steroid injection. Reviewed, dictated and finalized at location O. D ARTILLERY OPERATIONS SPECIALIST IMPRESSION: Fluoroscopy used during Left L5-S1, S1-[address] eroid injection.
--- NOTE | 2025-03-25 08:53 | WPDHPUPDATE1 ---
History and Physical Update Update Date/Time: 03/25/25 08:53 History and Physical has been reviewed, including an updated exam of the patient. There are NO changes in the patient's condition. Risks, benefits, and alternatives have been discussed and questions answered. Patient agrees to proceed with procedure.
--- NOTE | 2025-03-25 08:53 | W.PM.PROC2 ---
Procedure Note - Detailed Date of Procedure 03/25/25 Pre-op Diagnosis Lumbosacral Radiculopathy Post-op Diagnosis Same Procedure Performed Left lumbosacral Transforaminal Epidural Steroid Injection under Fluoroscopic Guidance and with Contrast Control at L5-S1, S1-S2. Surgeon Paul Streeter MD Anesthesia Local Description of Procedure INFORMED CONSENT: Risks, benefits and alternatives to the procedure were discussed in detail with the patient who expressed explicit understanding and consent to proceed. Patient was informed verbally and in written form regarding the risks associated with the procedure including the low risk of serious infection, bleeding/bruising, allergic reaction, nerve or organ injury, paralysis, procedural site pain or discomfort, worsening pain and/or mobility, failure to treat and/or disfigurement. The patient expressed explicit understanding and consent to proceed. All materials required for the procedure were available prior to procedure start. Site and side was marked prior to procedure and confirmed in the presence of the patient. PROCEDURE IN DETAIL: The patient was brought to the procedural suite and placed in the prone position. Patient was made comfortable with use of pillows under the head/chest, hips and ankles. Skin overlying the injection site was prepared broadly with ChloraPrep applicator and draped in a sterile manner. Aseptic technique was employed throughout. The endplates of the vertebral body at the site of interest were aligned in the AP view. Ipsilateral oblique angulation was utilized to better visualize the neuroforamen of interest. Local anesthesia was established by infiltration with approximately 5 mL of 0.5% PF lidocaine via a 1-1/2 inch 27-gauge needle. A 22-gauge 5.0 inch Bob (pencil point) spinal needle was advanced until the needle approached the 6 o'clock position on the pedicle just superior to the exiting nerve root. on the left at L5-S1. Lateral view was utilized to confirm appropriate position of the needle tip within the superior and posterior portion of the respective foramen. In an AP view, 1 mL of Omnipaque 300 contrast medium was injected after negative aspiration for CSF, blood or other bodily fluid, showing appropriate neurogram without evidence of intravascular or intrathecal spread of contrast. Digital subtraction imaging was used with an additional 1ml of the same contrast medium to confirm absence of intravascular contrast spread. A 1mL solution containing 5 mg of dexamethasone was injected after negative repeat aspiration. Appropriate spread of the injectate was confirmed with washout of previously injected contrast. No paresthesias were elicited. Needle was removed completely intact without difficulty. The same exact procedure was repeated for all remaining levels on the ipsilateral side, left S1-S2 neuroforamen, modified as necessary to accommodate for the new target location with identical findings and results and no evidence of complication. Images were saved and documented in the patient chart. Patient's skin was cleaned and sterile bandage applied. The patient tolerated the procedure well. The patient was transported to the recovery area in stable condition where they were observed for an appropriate amount of time prior to discharge, without evidence of complication. The patient was instructed to avoid excessive activity for the next 48 hours, including climbing and frequent use of stairs. Showers only for 48 hours. They were instructed not to drive or operate heavy machinery for 24 hours. They are to monitor for severe headaches, fevers, chills, night sweats, erythema/swelling at the site or any other signs of infection, bleeding/bruising, bowel or bladder changes as well as new pain, weakness or numbness in the upper or lower extremity. Should they notice these changes, they are instructed to call our office immediately or report directly to the nearest Emergency Department if no answer or if after posted office hours. COMPLICATIONS: None COMMENTS: None CONTRAST WASTED: 26 mL Omnipaque 300. STEROID WASTED: 0 mg of dexamethasone. Complications No immediate complications Condition Stable Disposition Same day [facility] Billing Surgery - Charge Forward: Surgery Billing
[2025-03-25 09:02] VITALS: BP 171/114; PULSE 82; RESP 20; TEMP 36.4; O2SAT 97
--- OUTSIDE RECORDS SUMMARY | 2025-03-25 09:11 | XMS_ITS | Clinical Summary ---
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 [address] [facility] [address] [place] [phone] (Work) Health Maintenance Due Date Last Done Comments Annual Physical 1992 Hepatitis C 2007 DTaP, Tdap and Td Vaccines ( 1 - Tdap) 2008 Hepatitis B Vaccines (1 of 3 - 19+ 3-dose series) 2008 HPV Vaccines (1 - 3-dose SCD M series) 2016 COVID-19 Vaccine ( - 2024-2 6 season) 2024 Influenza Adult (#1) 2025 Hepatitis A Vaccines Aged Out No long er eligible based on patient's age to complete this topic Meningococcal B Vaccine Aged Out No l onger eligible based on patient's age to complete this topic Meningococcal Vaccine Aged Out No saqib avelino eligible based on patient's age to complete this topic Pneumococcal Vaccine: Pediat rics (0 to 5 Years) and At-Risk Patients (6 to 49 Years) Aged Out No longer eligible b ased on patient's age to complete this topic RSV Immunizations Under 20 Months Aged Out No longer eligible based on patient's age to complete this topic Insurance [facility]
[2025-03-25 09:41] VITALS: BP 140/90; PULSE 77; RESP 20; O2SAT 96
[2025-03-25] MEDS: LIDOCAINE 1% PF INJ 5 ML VIAL INFILTRATE (09:43)
[2025-03-25] MEDS: DEXAMETHASONE SODIUM PHOSP/PF 10 MG/ML 1 ML VIAL (09:44)
[2025-03-25] MEDS: LIDOCAINE 2% PF LOCAL INJ 5 ML VIAL 1 ML INFILTRATE (09:44)
[2025-03-25 09:46] VITALS: BP 143/93; PULSE 73; RESP 20; O2SAT 97
[2025-03-25 09:49] VITALS: BP 126/93; PULSE 83; RESP 18; O2SAT 98
== END 2025-03-25 10:00 | disposition home or self-care (01) ==
PROVIDERS: PCP Nurse Practitioner Adult Health; Visit Provider Anesthesiology Pain Medicine
PROC: (CPT 64483; principal; 2025-03-25 09:50)
DX: M54.17 Radiculopathy, lumbosacral region (principal)
CPT/HCPCS: 64483; 64484; 99199